=== PATIENT | male | born 1945 | race Caucasian/White ===

== ENCOUNTER 2024-07-05 13:47 | Inpatient (IN) | payer OTHER ==
[~2024-07-05] VITALS: Ht 177.8 cm; Wt 76.2 kg
[2024-07-05 13:49] VITALS: BP 161/89; BP 172/31
[2024-07-05] MEDS ORDERED: ZOCOR40 MG PO (13:49)
[2024-07-05] MEDS ORDERED: COZAAR25 MG PO (13:49)
[2024-07-09 12:51] LABS: RH POSITIVE
[2024-07-10] MEDS ORDERED: BUPIVACAINE HCL 30 ML VIAL IJ ONE (09:15)
[2024-07-10] MEDS ORDERED: CEFTRIAXONE SODIUM 2,000 MG VIAL IV ONE (09:15)
[2024-07-10] MEDS ORDERED: LIDOCAINE HCL 1%/EPINEPHRINE 20ML VIAL IJ ONE (09:15)
[2024-07-10] MEDS ORDERED: METROnidazole 500 MG TABLET PO ONE (09:30)
[2024-07-10] MEDS ORDERED: METRONIDAZOLE/SODIUM CHLORIDE 500 MG/100 ML PIGGYBACK IV ONE (09:30)
[2024-07-10] MEDS ORDERED: RINGERS SOLUTION,LACTATED 1,000 ML IV SCH (09:45)
[2024-07-10] MEDS ORDERED: OxyCODONE HCL 5 MG TABLET (ROXICODONE) PO PRN (09:45)
[2024-07-10] MEDS ORDERED: DEXTROSE 50 % IN WATER 0.5 G/ML DISP.SYRIN IV PRN (09:45)
[2024-07-10] MEDS ORDERED: MORPHINE SULFATE 4 MG/ML CARTRIDGE IV PRN (09:45)
[2024-07-10] MEDS ORDERED: ONDANSETRON HCL 2 MG/ML VIAL IV PRN (09:45)
[2024-07-10] MEDS ORDERED: SUGAMMADEX SODIUM 200 MG/2 ML VIAL IV ONE (10:45)
[2024-07-10] MEDS ORDERED: MORPHINE SULFATE 4 MG/ML VIAL IV ONE ×2 (11:10→11:40)
[2024-07-10 12:20] LABS: HEMATOCRIT 42.1 % (39.0-48.0); HEMOGLOBIN 14.3 g/dL (13-16.00); MEAN CELL VOLUME 99.3 fL (80.0-100.00); MEAN CORPUSCULAR HEMOGLOBIN 33.7 pg (27.00-32.0); PLATELET COUNT 162 K/uL (150-450); RED BLOOD COUNT 4.24 M/uL (4.00-6.00)
[2024-07-10 12:49] LABS: ALBUMIN 3.3 gm/dL (3.4-5.0); CALCIUM 8.4 mg/dL (8.5-10.1); CREATININE SERUM 0.98 mg/dL (0.70-1.30); GFR 73.59; MAGNESIUM 1.9 mg/dL (1.8-2.4); PHOSPHOROUS 2.7 mg/dL (2.5-4.9); POTASSIUM 4.11 mEq/L (3.5-5.1)
[2024-07-10] MEDS ORDERED: ACETAMINOPHEN 500 MG GEL..CAP PO SCH (14:00)
[2024-07-10] MEDS ORDERED: GABAPENTIN 300 MG CAPSULE PO SCH (17:00)
[2024-07-10] MEDS ORDERED: POLYETHYLENE GLYCOL 3350 17 GM BLIST.PACK PO SCH (17:00)
[2024-07-10 19:28] VITALS: BP 172/81; O2SAT 95
[2024-07-10] MEDS ORDERED: FAMOTIDINE/PF 20 MG/2 ML VIAL IV PUSH SCH (21:00)
[2024-07-11 00:26] VITALS: BP 131/71; O2SAT 98
[2024-07-11 06:56] LABS: HEMATOCRIT 40.8 % (39.0-48.0); HEMOGLOBIN 14.3 g/dL (13-16.00); MEAN CELL VOLUME 97.7 fL (80.0-100.00); MEAN CORPUSCULAR HEMOGLOBIN 34.1 pg (27.00-32.0); MEAN CORPUSCULAR HGB CONC 34.9 g/dl (32.0-36.0); PLATELET COUNT 169 K/uL (150-450); RED BLOOD COUNT 4.18 M/uL (4.00-6.00); RED CELL DISTRIBUTION WIDTH 13.3 % (11.5-14.5)
[2024-07-11 07:18] LABS: ALBUMIN 3.1 gm/dL (3.4-5.0); CALCIUM 8.3 mg/dL (8.5-10.1); CREATININE SERUM 1.06 mg/dL (0.70-1.30); GFR 67.22; MAGNESIUM 1.9 mg/dL (1.8-2.4); POTASSIUM 4.17 mEq/L (3.5-5.1)
[2024-07-11 08:00] VITALS: BP 162/77; O2SAT 96
[2024-07-11] MEDS ORDERED: ENALAPRILAT DIHYDRATE 1.25 MG/ML VIAL IV PRN (10:45)
[2024-07-11 13:00] VITALS: BP 155/79; O2SAT 95
[2024-07-11 16:38] VITALS: BP 163/90; O2SAT 92
[2024-07-11] MEDS ORDERED: ENOXAPARIN SODIUM 40 MG/0.4 ML SYRINGE SUBCUTANEO SCH (17:00)
[2024-07-11] MEDS ORDERED: SIMVASTATIN 40 MG TABLET PO SCH (17:00)
[2024-07-12 00:12] VITALS: BP 150/68; O2SAT 92
[2024-07-12 08:37] LABS: HEMATOCRIT 39.5 % (39.0-48.0); HEMOGLOBIN 13.4 g/dL (13-16.00); MEAN CELL VOLUME 99.3 fL (80.0-100.00); MEAN CORPUSCULAR HEMOGLOBIN 33.7 pg (27.00-32.0); MEAN CORPUSCULAR HGB CONC 33.9 g/dl (32.0-36.0); PLATELET COUNT 144 K/uL (150-450); RED BLOOD COUNT 3.98 M/uL (4.00-6.00); RED CELL DISTRIBUTION WIDTH 12.9 % (11.5-14.5)
[2024-07-12 08:48] VITALS: BP 157/79; O2SAT 96
[2024-07-12] MEDS ORDERED: ENOXAPARIN SODIUM 40 MG/0.4 ML SYRINGE SUBCUTANEO SCH (09:00)
[2024-07-12 09:10] LABS: CREATININE SERUM 0.95 mg/dL (0.70-1.30); GFR 76.28; MAGNESIUM 1.9 mg/dL (1.8-2.4); PHOSPHOROUS 2.1 mg/dL (2.5-4.9); POTASSIUM 4.29 mEq/L (3.5-5.1)
[2024-07-12] MEDS ORDERED: POTASSIUM PHOS,M-BASIC-D-BASIC 3 MM/ML VIAL IV NR (10:00)
[2024-07-12 16:15] VITALS: BP 167/89; O2SAT 94
[2024-07-13 00:30] VITALS: BP 131/82; O2SAT 98
[2024-07-13] MEDS ORDERED: PANTOPRAZOLE SODIUM 80 MG in 0.9 % SODIUM CHLORIDE 100 ML IV SCH (06:40)
[2024-07-13 08:49] VITALS: BP 160/100; O2SAT 96
[2024-07-13] MEDS ORDERED: ENALAPRILAT DIHYDRATE 1.25 MG/ML VIAL IV SCH (12:00)
[2024-07-13 12:55] LABS: HEMATOCRIT 45.7 % (39.0-48.0); HEMOGLOBIN 15.5 g/dL (13-16.00); MEAN CORPUSCULAR HEMOGLOBIN 33.5 pg (27.00-32.0); MEAN CORPUSCULAR HGB CONC 33.9 g/dl (32.0-36.0); PLATELET COUNT 203 K/uL (150-450); RED BLOOD COUNT 4.62 M/uL (4.00-6.00)
[2024-07-13 13:18] LABS: CALCIUM 8.9 mg/dL (8.5-10.1); CREATININE SERUM 1.02 mg/dL (0.70-1.30); GFR 70.27; MAGNESIUM 1.9 mg/dL (1.8-2.4); PHOSPHOROUS 3.6 mg/dL (2.5-4.9); POTASSIUM 4.86 mEq/L (3.5-5.1)
[2024-07-13 16:38] VITALS: BP 165/90; O2SAT 93
[2024-07-13] MEDS ORDERED: AA 5 % NO.6/DEXTROSE 15 % 2,000 ML CENTRAL SCH (17:00)
[2024-07-13] MEDS ORDERED: AA 5 % NO.6/DEXTROSE 15 % 2,000 ML IV SCH (17:00)
[2024-07-13] MEDS ORDERED: DEXTROSE 5 %-0.45 % SOD CHLORD 1,000 ML IV SCH (22:30)
[2024-07-14 02:00] VITALS: BP 137/80; O2SAT 96
[2024-07-14 08:43] VITALS: BP 160/74; O2SAT 94
[2024-07-14 16:00] VITALS: BP 105/71; O2SAT 98
[2024-07-15 01:52] VITALS: BP 155/69; O2SAT 96
[2024-07-15 07:43] LABS: ALBUMIN 2.7 gm/dL (3.4-5.0); CALCIUM 8.2 mg/dL (8.5-10.1); CREATININE SERUM 0.96 mg/dL (0.70-1.30); GFR 75.36; PHOSPHOROUS 2.8 mg/dL (2.5-4.9); POTASSIUM 3.95 mEq/L (3.5-5.1)
[2024-07-15 07:44] LABS: HEMATOCRIT 37.3 % (39.0-48.0); HEMOGLOBIN 13.1 g/dL (13-16.00); MEAN CELL VOLUME 97.7 fL (80.0-100.00); MEAN CORPUSCULAR HEMOGLOBIN 34.3 pg (27.00-32.0); MEAN CORPUSCULAR HGB CONC 35.1 g/dl (32.0-36.0); PLATELET COUNT 178 K/uL (150-450); RED BLOOD COUNT 3.82 M/uL (4.00-6.00)
[2024-07-15 08:48] VITALS: BP 140/92; O2SAT 95
[2024-07-15] MEDS ORDERED: OxyCODONE HCL 5 MG TABLET (ROXICODONE) PO PRN (10:00)
[2024-07-15 16:00] VITALS: BP 163/78; O2SAT 97
[2024-07-15 18:00] VITALS: BP 147/74
[2024-07-16] VITALS: BP 157/77; O2SAT 94
[2024-07-16 08:00] VITALS: BP 154/77; O2SAT 95
[2024-07-16] MEDS ORDERED: LOSARTAN POTASSIUM 25 MG TABLET PO SCH (09:00)
[2024-07-16 16:24] VITALS: BP 181/78; O2SAT 95
[2024-07-17] VITALS: BP 166/82; O2SAT 95
[2024-07-17 03:00] VITALS: BP 155/72
[2024-07-17 06:45] LABS: HEMATOCRIT 38.6 % (39.0-48.0); HEMOGLOBIN 13.6 g/dL (13-16.00); MEAN CORPUSCULAR HEMOGLOBIN 34.2 pg (27.00-32.0); MEAN CORPUSCULAR HGB CONC 35.3 g/dl (32.0-36.0); PLATELET COUNT 199 K/uL (150-450); RED BLOOD COUNT 3.98 M/uL (4.00-6.00)
[2024-07-17 07:24] LABS: CALCIUM 8.1 mg/dL (8.5-10.1); CREATININE SERUM 0.92 mg/dL (0.70-1.30); GFR 79.16; PHOSPHOROUS 2.6 mg/dL (2.5-4.9); POTASSIUM 3.68 mEq/L (3.5-5.1)
[2024-07-17 08:50] VITALS: BP 148/74; O2SAT 93
[2024-07-17] MEDS ORDERED: CIPROFLOXACIN IN 5 % DEXTROSE 200 ML IV SCH (09:00)
[2024-07-17] MEDS ORDERED: METRONIDAZOLE/SODIUM CHLORIDE 100 ML IV SCH (09:00)
[2024-07-17] MEDS ORDERED: ENALAPRILAT DIHYDRATE 1.25 MG/ML VIAL IV PRN (10:00)
[2024-07-17 16:00] VITALS: BP 171/83; O2SAT 94
[2024-07-17] MEDS ORDERED: AA 5 % NO.6/DEXTROSE 15 % 2,000 ML CENTRAL SCH (17:00)
[2024-07-17] MEDS ORDERED: PROMETHAZINE HCL 25 MG/ML AMPUL IM PRN (17:45)
[2024-07-17] MEDS ORDERED: MEPERIDINE HCL/PF 25 MG/ML VIAL IM PRN (17:45)
[2024-07-17] MEDS ORDERED: DEXTROSE 50 % IN WATER 0.5 G/ML DISP.SYRIN IV PRN (20:30)
[2024-07-17] MEDS ORDERED: INSULIN LISPRO 1,000 UNIT/10 ML UNITS SUBCUTANEO PRN (20:30)
[2024-07-17 21:22] VITALS: BP 134/75
[2024-07-17] MEDS ORDERED: SODIUM CL 0.9% 100 ML IV.SOLN IV ONE (22:38)
[2024-07-18 00:45] VITALS: BP 136/74; O2SAT 95
[2024-07-18 08:55] VITALS: BP 170/77; O2SAT 95
[2024-07-18] MEDS ORDERED: PHENOL 177 ML BOTTLE MM SCH (09:00)
[2024-07-18] MEDS ORDERED: hydrALAZINE HCL 20 MG VIAL IV PRN (10:45)
[2024-07-18] MEDS ORDERED: SODIUM CHLORIDE 0.45 % 1,000 ML IV SCH (10:45)
[2024-07-18] MEDS ORDERED: ENALAPRILAT DIHYDRATE 1.25 MG/ML VIAL IV SCH (12:00)
[2024-07-18] MEDS ORDERED: DIATRIZOATE MEGLUMINE, SODIUM 30 ML BOTTLE PO STA (13:14)
[2024-07-18 16:26] VITALS: BP 182/80; O2SAT 95
[2024-07-18 19:31] VITALS: BP 153/81; O2SAT 98
[2024-07-19 00:47] VITALS: BP 136/77; O2SAT 95
[2024-07-19 06:18] LABS: HEMATOCRIT 36.9 % (39.0-48.0); HEMOGLOBIN 12.7 g/dL (13-16.00); MEAN CELL VOLUME 98.4 fL (80.0-100.00); MEAN CORPUSCULAR HEMOGLOBIN 33.9 pg (27.00-32.0); MEAN CORPUSCULAR HGB CONC 34.5 g/dl (32.0-36.0); PLATELET COUNT 222 K/uL (150-450); RED BLOOD COUNT 3.75 M/uL (4.00-6.00); RED CELL DISTRIBUTION WIDTH 12.4 % (11.5-14.5)
[2024-07-19 06:51] LABS: CALCIUM 7.7 mg/dL (8.5-10.1); CREATININE SERUM 0.85 mg/dL (0.70-1.30); GFR 86.73; MAGNESIUM 1.9 mg/dL (1.8-2.4); POTASSIUM 3.11 mEq/L (3.5-5.1)
[2024-07-19 07:53] LABS: PHOSPHOROUS 0.8 mg/dL (2.5-4.9)
[2024-07-19 08:45] VITALS: BP 161/88; O2SAT 95
[2024-07-19] MEDS ORDERED: POTASSIUM CHLORIDE 20MEQ/100ML H2O PB IV NR (10:00)
[2024-07-19 12:00] VITALS: BP 144/76
[2024-07-19] MEDS ORDERED: ENALAPRILAT DIHYDRATE 1.25 MG/ML VIAL IV SCH (12:00)
[2024-07-19 16:00] VITALS: BP 143/86; O2SAT 95
[2024-07-19] MEDS ORDERED: METOCLOPRAMIDE HCL 5 MG/ML VIAL IV SCH (17:00)
[2024-07-19] MEDS ORDERED: POTASSIUM PHOS,M-BASIC-D-BASIC 15 MM in 0.9 % SODIUM CHLORIDE 250 ML IV ONE (17:00)
[2024-07-20 00:12] VITALS: BP 106/71; O2SAT 94
[2024-07-20 07:31] LABS: HEMATOCRIT 37.4 % (39.0-48.0); HEMOGLOBIN 12.7 g/dL (13-16.00); MEAN CELL VOLUME 97.8 fL (80.0-100.00); MEAN CORPUSCULAR HEMOGLOBIN 33.2 pg (27.00-32.0); MEAN CORPUSCULAR HGB CONC 33.9 g/dl (32.0-36.0); PLATELET COUNT 244 K/uL (150-450); RED BLOOD COUNT 3.82 M/uL (4.00-6.00); RED CELL DISTRIBUTION WIDTH 12.6 % (11.5-14.5)
[2024-07-20 07:48] LABS: CALCIUM 7.6 mg/dL (8.5-10.1); CREATININE SERUM 0.92 mg/dL (0.70-1.30); GFR 79.16; MAGNESIUM 1.8 mg/dL (1.8-2.4); POTASSIUM 3.06 mEq/L (3.5-5.1)
[2024-07-20 07:58] LABS: PHOSPHOROUS 1.4 mg/dL (2.5-4.9)
[2024-07-20 08:37] VITALS: BP 139/73; O2SAT 95
[2024-07-20] MEDS ORDERED: POTASSIUM CHLORIDE 20MEQ/100ML H2O PB IV NR (10:00)
[2024-07-20] MEDS ORDERED: MAGNESIUM SULFATE IN WATER 50 ML IV NR (10:00)
[2024-07-20] MEDS ORDERED: POTASSIUM PHOS,M-BASIC-D-BASIC 15 MM in 0.9 % SODIUM CHLORIDE 250 ML IV NR (10:00)
[2024-07-20] MEDS ORDERED: LACTOBACILLUS ACIDOPHILUS 1 CAP CAP PO SCH (10:45)
[2024-07-20] MEDS ORDERED: LOSARTAN POTASSIUM 25 MG TABLET PO STA (12:15)
[2024-07-20 16:00] VITALS: BP 143/87; O2SAT 96
[2024-07-21] VITALS: BP 133/73; O2SAT 95
[2024-07-21 08:07] VITALS: BP 139/79; O2SAT 95
[2024-07-21] MEDS ORDERED: LOSARTAN POTASSIUM 25 MG TABLET PO SCH (09:00)
[2024-07-21] MEDS ORDERED: INTESTINEX680 M1 PO (10:49)
[2024-07-21] MEDS ORDERED: PEPCID AC20 MG PO (10:49)
[2024-07-21] MEDS ORDERED: TRAM1TAB98 PO (10:49)
== END 2024-07-21 11:44 | disposition home or self-care (01) | DRG 330 ==
LOC: O/R 07-10 05:55 → SURH 07-10 05:55 → SURG 07-10 12:29 → SURH 07-10 13:23
PROVIDERS: Internal Medicine Geriatric Medicine; ADMIT Surgery; ATTEND Surgery
PROC: 07BB4ZZ Excision of Mesenteric Lymphatic, Percutaneous Endoscopic Approach (ICD-10-PCS; 2024-07-10)
PROC: 07BC4ZZ Excision of Pelvis Lymphatic, Percutaneous Endoscopic Approach (ICD-10-PCS; 2024-07-10)
PROC: 0DBL4ZZ Excision of Transverse Colon, Percutaneous Endoscopic Approach (ICD-10-PCS; 2024-07-10)
PROC: 0DTF4ZZ Resection of Right Large Intestine, Percutaneous Endoscopic Approach (ICD-10-PCS; principal; 2024-07-10 18:30)
PROC: 0D9670Z Drainage of Stomach with Drainage Device, Via Natural or Artificial Opening (ICD-10-PCS; 2024-07-13)
PROC: 02HV33Z Insertion of Infusion Device into Superior Vena Cava, Percutaneous Approach (ICD-10-PCS; 2024-07-13)
PROC: 3E0436Z Introduction of Nutritional Substance into Central Vein, Percutaneous Approach (ICD-10-PCS; 2024-07-13)
PROC: BW21YZZ Computerized Tomography (CT Scan) of Abdomen and Pelvis using Other Contrast (ICD-10-PCS; 2024-07-18)
DX: C18.2 Malignant neoplasm of ascending colon (principal); K56.7 Ileus, unspecified; K91.89 Other postprocedural complications and disorders of digestive system; D12.3 Benign neoplasm of transverse colon; R59.0 Localized enlarged lymph nodes